=== PATIENT | female | born 1980 | race Caucasian/White ===

== ENCOUNTER 2021-09-26 09:31 | Outpatient (CLI) | payer OTHER, SELFPAY ==
[2021-09-26 10:10] LABS: Partial Thromboplastin Time 29.9 SEC (23.90-30.70); Prothrombin Time 10.6 Seconds (9.50-12.10)
== END 2021-09-26 09:32 | disposition home or self-care (01) ==
LOC: CHSLAB 09:35
PROVIDERS: PCP Family Medicine; Visit Provider Urology
DX: N20.0 Calculus of kidney (principal)
CPT/HCPCS: 36415; 85610; 85730; 87086; 87088

== ENCOUNTER 2021-10-04 00:52 | Day surgery (SDC) | payer OTHER, SELFPAY ==
[2021-09-23 14:31] VITALS: BMI 43.4
--- NOTE | 2021-09-23 14:44 | PC.NURSE ---
Report to the Outpatient Waiting Room, entrance under the green pavilion located off [facility], at time 0600 on date 10/04/21. OR Time: 0730. - You and your visitor will be asked a series of questions to screen for COVID 19 for your protection. - A mask is required within the hospital. One visitor will be allowed to accompany the patient into the hospital. Patients visitor will be instructed to remain with patient at all times or leave the building. We will allow the visitor to come back to the postoperative area when patient is ready. Preoperative COVID Testing Requirements: No COVID Test needed if: (proof is required; if not received patient will have Rapid Test prior to entry) - Patient has received COVID Vaccine at least 14 days prior to procedure date or - Patient has positive COVID test result within last 90 days of surgery date. COVID Test needed if above criteria is not met Patients may have clear liquids (water, carbonated beverages, clear teas, apple juice) until 3 hours prior to surgery with a maximum of 20 ounces. - No food from midnight until time of surgery Take the following medications with a SIP of water the morning of surgery: LEVOTHYROXINE, PAIN PILL (IF NEEDED) Medications to discontinue per physician: N/A Date to take last dose: N/A Please no make-up, nail maltese, hairspray, perfume, deodorant, or body powder the day of surgery. No jewelry (including any body piercings) or valuables the day of surgery, leave them at home. Please take a shower or bath the night before, or the morning of, surgery with an antibacterial soap. Wear comfortable, loose fitting clothing. - Jewelry must be removed prior to entering the operating room. Rings and piercings that are not removed may be cut off. - The hospital will not accept responsibility for valuables. - Please leave all valuables, including medications, at home the day of surgery. If you are going home after surgery, a licensed day haul or farm charter bus driver must drive you home. - NO public transportation without another adult. - We recommend that an adult stay with you for 24 hours following discharge. - We also recommend that you do not drive, make important decision, drink alcoholic beverages, or take any drugs that were not prescribed by your health care provider for at least 24 hours after your discharge time. Follow any additional instructions given to you from your surgeon. Telephone instructions given to MERLE LEMUS and asked if any additional questions and then verbalized understanding. Patient advised to call surgeon office or pre surgery nurse liaison [phone] if any additional questions.
--- NOTE | 2021-10-03 13:27 | WPDANESEPPF ---
Anes - Initial Pre Proc Eval Procedure: Operation Date: 10/04/21 07:30 Proposed Procedures p Right Extracorporeal Shock Wave Lithotripsy - Festus Blount MD s Cystoscopy, Possible Right Stent Placement - Festus Blount MD Date/Time: 10/03/21 13:27 Surgeon: Festus Blount MD Pre Op Diagnosis: right kidney stone Patient Data Age: 40 Gender: F Height: 1.55 m Weight: 104.33 kg Allergies Allergy/AdvReac Type Severity Reaction Status Date / Time No Known Allergies Allergy Verified 10/04/21 06:14 Home Medications Medication Instructions Recorded Confirmed Type cyclobenzaprine 5 mg PO DAILY 09/23/21 10/04/21 History eszopiclone 2 mg PO HS 09/23/21 10/04/21 History fluvoxamine 100 mg PO HS 09/23/21 10/04/21 History hydrocodone-acetaminophen 1 tablet PO Q6H PRN 09/23/21 10/04/21 History hydroxyzine pamoate 200 mg PO HS 09/23/21 10/04/21 History levothyroxine 88 mcg PO DAILY 09/23/21 10/04/21 History lorazepam 1 mg PO DAILY PRN 09/23/21 10/04/21 History metformin 2,000 mg PO HS 09/23/21 10/04/21 History norethindrone-e.estradiol-iron 1 tablet PO DAILY 09/23/21 10/04/21 History [[place] Fe 06/27 ()] tamsulosin 0.4 mg PO HS 09/23/21 10/04/21 History Patient hx anesthesia problems: post op nausea/vomiting Family hx anesthesia problems: none Results Review: All pre-operative results and documents have been reviewed as part of the pre-operative evaluation. [facility] Past Medical History Medical History (Updated 10/03/21 @ 13:28 by Partha Long DO) Anxiety Hypothyroidism PCOS (polycystic ovarian syndrome) Surgical History Surgical History (Updated 10/03/21 @ 13:28 by Partha Long DO) History of cholecystectomy Social History Social History Smoking status: Never smoker Alcohol intake: former Substance use: never Substance use type: does not use Living arrangements: with family Spiritual care concerns: No Anes - Eval Final PreProcedure Day of Procedure 10/03/21 13:27 Patient weight: morbidly obese Heart: regular rate and rhythm Lungs: clear to auscultation and normal air movement Airway: Mallampati scale class II Neurological: alert and oriented Last oral intake: >/= 8 hours ASA classification: III Emergent: no Anesthetic plan: proceed Anesthesia type and monitoring: general LMA and standard monitoring Results Review: All pre-operative results and documents have been reviewed as part of the pre-operative evaluation. Informed Consent: The patient's anesthetic plan and its attendant risks and benefits were discussed with the patient/family/POA. Questions were solicited and answers provided to the satisfaction of the patient/family/POA.
[2021-10-04] VITALS (8 sets, daily range): BP systolic 95–163; BP diastolic 49–107; PULSE 71–91; RESP 16–20; TEMP 36.4; O2SAT 96–100
--- NOTE | ~2021-10-04 | XR_ITS ---
EXAMINATION: XR abdomen/kub 1V DATE: 10/04/2021 06:03 INDICATION: Kidney stone. TECHNIQUE: A supine view of the abdomen on 2 radiographs was obtained. COMPARISON: None. FINDINGS: There are no dilated loops of bowel. There is an 11 mm stone in right kidney. Surgical clip s in the right upper quadrant are likely from cholecystectomy. There are calcifications in the pelvis . IMPRESSION: 1. 11 mm stone in right kidney. 2. Calcifications in the pelvis, which may be phleboliths. Distal ureteral stone cannot be excluded. Reviewed, dictated and finalized at location A. IMPRESSION: 1. 11 mm stone in right kidney. 2. Calcifications in the pelvis, which may be phleboliths. Distal ureteral ston e cannot be excluded.
--- NOTE | 2021-10-04 06:08 | WPDHPUPDATE1 ---
History and Physical Update Update Date/Time: 10/04/21 06:08 History and Physical has been reviewed, including an updated exam of the patient. There are NO changes in the patient's condition. Risks, benefits, and alternatives have been discussed and questions answered. Patient agrees to proceed with procedure. Proceed with eswl right renal calculus, possible cysto , retrograde , stent placement.
[2021-10-04] MEDS: LACTATED RINGERS 1,000 ML 30 ML IV CONT (06:40)
[2021-10-04] MEDS: SCOPOLAMINE 1.5 MG PATCH TRANSDERM (07:21)
[2021-10-04] MEDS: ceFAZolin 2 GM/D5W 50 ML 2 GM/50 ML BAG IVPB (07:25)
[2021-10-04] MEDS: LIDOCAINE HCL 2% GEL UROJET 10 ML PKG MUCOUS MEM (07:44)
--- NOTE | 2021-10-04 08:16 | W.PM.PROC2 ---
Procedure Note - Detailed Date of Procedure 10/04/21 Pre-op Diagnosis right kidney stone Post-op Diagnosis Same Procedure Performed Cystoscopy, right ureteral stent placement 4.8 Romanian contour, ESWL right renal calculus Surgeon Festus Blount MD Anesthesia General Description of Procedure Patient is taken to the operative suite correctly identified. Once anesthesia was obtained she was placed in the frogleg position and prepped and draped usual sterile fashion. Sixteen Romanian scope was inserted into the bladder. There were no tumors noted. The right ureteral orifice was cannulated with a guidewire. We then placed a 4.8 Romanian contour stent over the guidewire. The proximal end was coiled in the renal pelvis and the distal in the bladder. Scope was removed. 2% viscous lidocaine was placed into the urethra. Patient was repositioned. Two thousand five hundred shocks were given to the stone. There appeared to be fragmentation. Patient tolerated procedure well without any complications and is taken recovery stable condition. She will follow up in about 7-10 days with [facility]. Drains Yes Packing No Pathology None sent Complications No immediate complications Condition Stable Disposition PACU
[2021-10-04] MEDS: fentaNYL CITRATE INJ (*CRX) 100 MCG/2 ML VIAL 25 MCG IV PUSH ×2 (08:33→08:36)
[2021-10-04] MEDS: oxyCODONE HCL (*CRX) 5 MG TAB IR PO (09:01)
== END 2021-10-04 09:57 | disposition home or self-care (01) ==
PROVIDERS: PCP Family Medicine; Visit Provider Urology
PROC: (CPT 50590; principal; 2021-10-04 07:30)
PROC: (CPT 52352; 2021-10-04 07:30)
DX: N20.0 Calculus of kidney (principal); R10.9 Unspecified abdominal pain; R11.2 Nausea with vomiting, unspecified; R50.9 Fever, unspecified; R39.15 Urgency of urination; R35.0 Frequency of micturition; E03.9 Hypothyroidism, unspecified; R31.29 Other microscopic hematuria; Z79.84 Long term (current) use of oral hypoglycemic drugs; F41.9 Anxiety disorder, unspecified; E28.2 Polycystic ovarian syndrome; Z90.49 Acquired absence of other specified parts of digestive tract; E66.01 Morbid (severe) obesity due to excess calories; Z68.41 Body mass index [BMI] 40.0-44.9, adult
CPT/HCPCS: 50590; 52332; 74018; A9270; C1769; C2617; J0690; J1100; J2250; J2405; J2704; J3010; J7030; J7120

== ENCOUNTER 2021-10-17 09:54 | Outpatient (CLI) | payer OTHER, SELFPAY ==
--- NOTE | ~2021-10-17 | XR_ITS ---
EXAMINATION: XR abdomen/kub 1V DATE: 10/17/2021 10:18 INDICATION: Right renal stone post lithotripsy and stent placement TECHNIQUE: A supine view of the abdomen on 2 radiographs was obtained. COMPARISON: 10/04/2028 FINDINGS: Previously seen 11 mm right renal stone is no longer visualized consistent with provided history of i nterval lithotripsy. There is likely to have 3 mm residual stone fragment at the lower pole of the ri ght kidney right internal ureteral stent with loops formed over the expected location of the right re nal pelvis and the bladder. No stone fragments seen along the course of the stent. There are few phle boliths in left hemipelvis. Cholecystectomy clips in right upper quadrant with likely dropped clip in the left hemipelvis. Mild lumbar dextrocurvature. Lung bases are clear. Heart size normal. Normal [place] wel gas pattern.. IMPRESSION: 1. Right internal ureteral stent in expected position and residual 2-3 mm stone fragment at the lower pole of the right kidney post reported interval lithotripsy. Reviewed, dictated and finalized at location A. IMPRESSION: 1. Right internal ureteral stent in expected position and residual 2-3 mm stone fragment at the lower pole of the right kidney post reported interval lithotri psy.
== END 2021-10-17 09:55 | disposition home or self-care (01) ==
PROVIDERS: PCP Family Medicine; Visit Provider Urology
DX: N20.0 Calculus of kidney (principal); Z96.0 Presence of urogenital implants
CPT/HCPCS: 74018